=== PATIENT | female | born 2000 | race African-American/Black ===

== ENCOUNTER 2023-09-09 16:46 | Inpatient (IN) | payer MEDICAID, OTHER ==
--- NOTE | 2023-09-09 17:27 | ED ---
General Adult HPI - General Chief complaint: Psychiatric Symptoms Stated complaint: Suicidal Ideations Time Seen by Provider: 09/09/23 16:59 Source: patient, EMS, RN notes reviewed Mode of arrival: EMS Limitations: no limitations - History of Present Illness Initial comments: 23 year old female presents to the emergency department for evaluation of suic idal ideation. Patient states that she has been struggling with her mental health for years but has been worse recently. She denies any situational changes. She denies suicidal intent or plan. Admits to self harm with superficial arm abrasions. Denies hallucinations, delusions. - Related Data Allergies Allergy/AdvReac Type Severity Reaction Status Date / Time ibuprofen Allergy Rash/Hives Verified 09/09/23 16:59 Review of Systems ROS Statement: Those systems with pertinent positive or pertinent negative responses have been documented in the HPI. ROS Other: All systems not noted in ROS Statement are negative. Past Medical History Past Medical History: Asthma Additional Past Medical History / Comment(s): Anemia History of Any Multi-Drug Resistant Organisms: None Reported Past Surgical History: No Surgical Hx Reported Past Psychological History: Anxiety Smoking Status: Vaper Past Alcohol Use History: Occasional Past Drug Use History: Marijuana General Exam Limitations: no limitations General appearance: alert, in no apparent distress Head exam: Present: atraumatic, normocephalic, normal inspection Eye exam: Present: normal appearance, PERRL, EOMI. Absent: scleral icterus, conjunctival injection, periorbital swelling ENT exam: Present: normal exam, mucous membranes moist Respiratory exam: Present: normal lung sounds bilaterally. Absent: respiratory distress, wheezes, rales, rhonchi, stridor Cardiovascular Exam: Present: regular rate, normal rhythm, normal heart sounds. Absent: systolic murmur, diastolic murmur, rubs, gallop, clicks Extremities exam: Present: normal inspection, full ROM, normal capillary refill. Absent: tenderness, pedal edema, joint swelling, calf tenderness Neurological exam: Present: alert, oriented X3 Psychiatric exam: Present: depressed, flat affect, suicidal ideation Skin exam: Present: warm, dry, intact, normal color. Absent: rash Course Vital Signs 09/09/23 09/09/23 16:53 19:56 Temperature 98.8 F Pulse Rate 75 Respiratory 17 18 Rate Blood Pressure 138/80 O2 Sat by Pulse 95 Oximetry Medical Decision Making - Medical Decision Making Was pt. sent in by a medical professional or institution ([facility], [facility], urgent care, hospital, or assisted...) When possible be specific @ -[No] Did you speak to anyone other than the patient for history (EMS, parent, family, police, friend...)? What history was obtained from this source @ -[No] Did you review nursing and triage notes (agree or disagree)? Why? @ -[I reviewed and agree with nursing and triage notes] Were old charts reviewed (outside hosp., previous admission, EMS record, old EKG, old radiological studies, urgent care reports/EKG's, assisted records)? Report findings @ -[No old charts were reviewed] Differential Diagnosis (chest pain, altered mental status, abdominal pain women, abdominal pain men, vaginal bleeding, weakness, fever, dyspnea, syncope, head ache, dizziness, GI bleed, back pain, seizure, CVA, palpatations, mental health, musculoskeletal)? @ -[Differential Mental Health Depression, anxiety, bipolar, psychosis, schizophrenia, borderline personality, situational depression, adjustment disorder, behavioral disorder, brain tumor, malingering, substance abuse, encephalopathy, medication reaction, dementia, hypothyroidism, degenerative neurologic disorder, lupus.... This is not meant to be all-inclusive list] EKG interpreted by me (3pts min.). @ -[none] X-rays interpreted by me (1pt min.). @ -[None done] CT interpreted by me (1pt min.). @ -[None done] U/S interpreted by me (1pt. min.). @ -[None done] What testing was considered but not performed or refused? (CT, X-rays, U/S, labs)? Why? @ -[None] What meds were considered but not given or refused? Why? @ -[None] Did you discuss the management of the patient with other professionals (professionals i.e. [facility], [facility], lab, RT, psych nurse, social service assistant, change booth attendant, teacher, supervisory cbp officer, casey saw operator)? Give summary @ -[Management discussed with emergency psychiatric services who recommends inpatient treatment for the patient] Was smoking cessation discussed for >3mins.? @ -[No] Was critical care preformed (if so, how long)? @ -[No] Were there social determinants of health that impacted care today? How? (Homelessness, low income, unemployed, alcoholism, drug addiction, transportation, low edu. Level, literacy, decrease access to med. care, snf, rehab)? @ -[No] Was there de-escalation of care discussed even if they declined (Discuss DNR or withdrawal of care, Hospice)? DNR status @ -[No] What co-morbidities impacted this encounter? (DM, HTN, Smoking, COPD, CAD, Cancer, CVA, ARF, Chemo, Hep., AIDS, mental health diagnosis, sleep apnea, morbid obesity)? @ -[None] Was patient admitted / discharged? Hospital course, mention meds given and route, prescriptions, significant lab abnormalities, going to OR and other pertinent info. @ -[Discharged. Patient presented to the emergency department for several ideation without attempt or plan. Patient does admit to self-harm. She is not currently taking medications for her mental health. Patient was evaluated by emergency psychiatric services and inpatient treatment was recommended. Patient is resting comfortably in the room. ] Undiagnosed new problem with uncertain prognosis? @ -[No] Drug Therapy requiring intensive monitoring for toxicity (Heparin, Nitro, Insulin, Cardizem)? @ -[No] Were any procedures done? @ -[No] Diagnosis/symptom? @ -[suicidal ideation] Acute, or Chronic, or Acute on Chronic? @ -[acute] Uncomplicated (without systemic symptoms) or Complicated (systemic symptoms)? @ -[uncomplicated] Side effects of treatment? @ -[No] Exacerbation, Progression, or Severe Exacerbation? @ -[No] Poses a threat to life or bodily function? How? (Chest pain, USA, NC, pneumonia, PE, COPD, DKA, ARF, appy, cholecystitis, CVA, Diverticulitis, Homicidal, Suicidal, threat to staff... and all critical care pts) @ -[No] - Lab Data Lab Results 09/09/23 09/09/23 09/09/23 Range/Units 17:48 17:48 19:10 Urine Color Yellow Urine Appearance Cloudy H (Clear) Urine pH 6.0 (5.0-8.0) Ur Specific [place] 1.037 H (1.001-1.035) Urine Protein Trace H (Negative) Urine Glucose (UA) Negative (Negative) Urine Ketones Negative (Negative) Urine Blood Negative (Negative) Urine Nitrite Negative (Negative) Urine Bilirubin Negative (Negative) Urine Urobilinogen 2.0 (<2.0) mg/dL Ur Leukocyte Esterase Small H (Negative) Urine RBC <1 (0-5) /hpf Urine WBC 2 (0-5) /hpf Ur Squamous Epith Cells 4 (0-4) /hpf Urine Mucus Many H (None) /hpf Urine HCG, Qual Not Detected (Not Detectd) Urine Opiates Screen Not Detected (NotDetected) Ur Oxycodone Screen Not Detected (NotDetected) Urine Methadone Screen Not Detected (NotDetected) Ur Barbiturates Screen Not Detected (NotDetected) U Tricyclic Antidepress Not Detected (NotDetected) Ur Phencyclidine Scrn Not Detected (NotDetected) Ur Amphetamines Screen Not Detected (NotDetected) U Methamphetamines Scrn Not Detected (NotDetected) U Benzodiazepines Scrn Not Detected (NotDetected) Urine Cocaine Screen Not Detected (NotDetected) U Marijuana (THC) Screen Detected H (NotDetected) SARS-CoV-2 (PCR) Not Detected (Not Detectd) Disposition Clinical Impression: Depression, Suicidal ideation Disposition: TRANSFER TO PSYCH HOSP/UNIT Condition: Stable Is patient prescribed a controlled substance at d/c from ED?: No Referrals: None,Stated [Primary Care Provider] - 1-2 days
[2023-09-09 18:23] LABS: Appearance,Urine Cloudy (Clear); Bilirubin,Urine Negative (Negative); Blood,Urine Negative (Negative); Color,Urine Yellow; Glucose,Urine (UA) Negative (Negative); Ketones,Urine Negative (Negative); Leukocyte Esterase,Urine Small (Negative); Mucus,Urine Many /hpf; Nitrite,Urine Negative (Negative); Protein,Urine Trace (Negative); RBC,Urine <1 /hpf (0-5); Specific Gravity,Urine 1.037 (1.001-1.035); Squamous Epithelial Cell,Urine 4 /hpf (0-4); WBC,Urine 2 /hpf (0-5)
[2023-09-09 18:32] LABS: Amphetamine Screen,Urine Not Detected (NotDetected); Barbiturate Screen,Urine Not Detected (NotDetected); Benzodiazepines Screen,Urine Not Detected (NotDetected); Cocaine Screen,Urine Not Detected (NotDetected); Methadone Screen, Urine Not Detected (NotDetected); Opiate Screen,Urine Not Detected (NotDetected); Oxycodone Screen, Urine Not Detected (NotDetected); Phencyclidine Screen,Urine Not Detected (NotDetected); Tricyclic Antidepressant,Urine Not Detected (NotDetected); Urn Cannabinoid Scrn Detected (NotDetected)
[2023-09-09] MEDS ORDERED: hydrOXYzine HCL 25 MG TAB PO PRN (23:28)
[2023-09-09] MEDS ORDERED: ACETAMINOPHEN TAB 325 MG TAB PO PRN (23:28)
[2023-09-09] MEDS ORDERED: hydrOXYzine HCL 50 MG/ML 1 ML VIAL IM PRN (23:28)
[2023-09-09] MEDS ORDERED: MAGNESIUM HYDROXIDE 2,400 MG/30 ML CUP PO PRN (23:28)
[2023-09-09] MEDS ORDERED: MAG HYDROX/AL HYDROX/SIMETH 30 ML CUP PO PRN (23:28)
[2023-09-09] MEDS ORDERED: MELATONIN 5 MG TABLET PO PRN (23:31)
[2023-09-10] MEDS: NICOTINE 14MG/24HR PATCH TRANSDERM SCH (08:50)
--- NOTE | 2023-09-10 10:54 | P.HP ---
Psychiatric H&P - . H&P Date: 09/10/23 History & Physical: Allergies Allergy/AdvReac Type Severity Reaction Status Date / Time ibuprofen Allergy Rash/Hives Verified 09/09/23 21:40 Vital Signs Temp 98.5 F 09/10/23 00:45 Pulse 82 09/10/23 08:48 Resp 16 09/10/23 08:48 BP 141/85 09/10/23 08:48 Pulse Ox 95 09/09/23 16:53 FiO2 Intake & Output 09/09/23 09/10/23 09/10/23 18:59 06:59 18:59 Weight 145.15 kg 145.15 kg Laboratory Last Values Urine Color Yellow 09/09/23 17:48 Urine Appearance Cloudy (Clear) H 09/09/23 17:48 Urine pH 6.0 (5.0-8.0) 09/09/23 17:48 Ur Specific [place] 1.037 (1.001-1.035) H 09/09/23 17:48 Urine Protein Trace (Negative) H 09/09/23 17:48 Urine Glucose (UA) Negative (Negative) 09/09/23 17:48 Urine Ketones Negative (Negative) 09/09/23 17:48 Urine Blood Negative (Negative) 09/09/23 17:48 Urine Nitrite Negative (Negative) 09/09/23 17:48 Urine Bilirubin Negative (Negative) 09/09/23 17:48 Urine Urobilinogen 2.0 mg/dL (<2.0) 09/09/23 17:48 Ur Leukocyte Esterase Small (Negative) H 09/09/23 17:48 Urine RBC <1 /hpf (0-5) 09/09/23 17:48 Urine WBC 2 /hpf (0-5) 09/09/23 17:48 Ur Squamous Epith Cells 4 /hpf (0-4) 09/09/23 17:48 Urine Mucus Many /hpf (None) H 09/09/23 17:48 Urine HCG, Qual Not Detected (Not Detectd) 09/09/23 17:48 Urine Opiates Screen Not Detected (NotDetected) 09/09/23 17:48 Ur Oxycodone Screen Not Detected (NotDetected) 09/09/23 17:48 Urine Methadone Screen Not Detected (NotDetected) 09/09/23 17:48 Ur Barbiturates Screen Not Detected (NotDetected) 09/09/23 17:48 U Tricyclic Antidepress Not Detected (NotDetected) 09/09/23 17:48 Ur Phencyclidine Scrn Not Detected (NotDetected) 09/09/23 17:48 Ur Amphetamines Screen Not Detected (NotDetected) 09/09/23 17:48 U Methamphetamines Scrn Not Detected (NotDetected) 09/09/23 17:48 U Benzodiazepines Scrn Not Detected (NotDetected) 09/09/23 17:48 Urine Cocaine Screen Not Detected (NotDetected) 09/09/23 17:48 U Marijuana (THC) Screen Detected (NotDetected) H 09/09/23 17:48 SARS-CoV-2 (PCR) Not Detected (Not Detectd) 09/09/23 19:10 09/10/23 09:17 IDENTIFYING DATA: Patient is a student, 23-year-old AA female who is presenting with suicidal ideation HPI: Patient was brought in by EMS due to suicidal ideation and superficial cutting for self-harm. Patient reports down and "frustrated" for the past 1 week. Stressors include sense of abandonment from family, recent argument with boyfriend, lack of finances for food, clothing, and housing. 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 However, she says that she had a "breakdown" where she cut herself with a tool from her baking kit on the L forearm and cut her hair with a knife to relieve frustration. She felt she would attempt suicide and therefore called EMS. She cannot recall having thought of a specific plan but was feeling unsafe to be left by herself. She endorses recurrent bouts of depression, with the longest duration being 1 week, and largely due to loneliness. She reports having felt depressed for a few months when her grandmother (primary caregiver) in 2019. She recently reports having trouble sleeping for 3 days (trouble falling asleep), fair energy, fair appetite, thoughts of worthlessness, fluctuating concentration, and psychomotor retardation. Although patient denies symptoms consistent with hypomania or wilson, she admits to having 2-3 days of low to poor sleep with preserved energy. She denies other potential concurrent symptoms including increased goal-directed activity, flight of ideas, increased talkativeness, distractibility, increased indiscretion, grandiosity, and impulsivity. Patient currently denies suicidal ideation and homicidal ideation. She denies auditory and visual hallucinations, as asked and assessed. She denies access to firearms. PSYCH HX: Previous psychiatrist: Denies Therapist: Denies Past tx: Effexor - "made me more depressed" through PCP. Zoloft - took it once and felt it was helpful Hospitalizations: Denies NSSI: One other time cutting her forearm SA: OD Naproxen 2 years ago PMH: Anemia (on ferrous sulfate), irregular menses (but now on OCP and therefore consistent) ALLERGIES: Ibuprofen PCP: Denies currently but has transformation consultant Head injuries: Denies Seizures: Denies SUBSTANCE HX: Alcohol: Occasional, social Tobacco: Vape nicotine Cannabis: Every other weekend- vapes Denies using other substances SOCIAL/LEGAL HX: She was raised by her grandmother who in 2019. Mother used to visit occasionally. Never met biological father. Patient felt mother valued men over her and her sister. Mother kicked her out of grandmother's home and she was staying with her friends prior to enrolling in [employer]. Sister is in [place]. She has one older brother who works for [employer]. She has been staying in the dorms. She has been dating her boyfriend for 3 years. Highest level of education: [employer] - would like become a cloth shearer. Is a 2 year school and she will be graduating this year. Vocation: Worked at [email or web address] in the past and sold desserts in the past Legal problems: Denies FAM PSYCH HX: Mother: unknown but potentially bipolar Sister & brother: depression Suicide attempts: Maternal cousin MENTAL STATUS EXAM: General Appearance: Patient appears to be stated age is alert, directable, and attempts to cooperate. Patient appears to have poor hygiene and grooming. Behavior: Patient is seated without any agitated behavior. Speech: Patient's speech is fluent and nonpressured. Soft spoken Mood/Affect: Patient reports their mood is depressed, affect is incongruent and blunted Suicidality/Homicidality: Patient denies having any homicidal ideation intent or plan. Denies any suicidal ideations intent or plan Perceptions: Patient denies any visual hallucinations and denies any auditory hallucinations Though content/process: There is no evidence of any delusional thought content and thought process is linear and goal-directed. Memory and concentration: AOX3, grossly intact for the purposes of this session. Can spell "WORLD" backwards Judgment and insight: Fair STRENGTHS/WEAKNESSES: Strength is insight into seeking treatment. Weakness is lack of social support. INTELLECT: average IMPRESSIONS: Depressive disorder unspecified Nicotine dependence Cannabis use disorder, mild PLAN: -Patient is admitted under voluntary status to MHU for stabilization of psychiatric symptoms and safety. Patient signed adult voluntary form and medication consent and is placed in patient's chart. -Medications: Start Zoloft 25 mg daily for low mood Start melatonin 5 mg at bedtime for sleep -NRT- patch -Vistaril PRN for anxiety -Monitor for signs and symptoms of wilson -Patient was counselled on substance abuse and desired to cut back on use. Motivational interviewing. -Patient was informed of the risks, benefits and side effects of the medication and patient verbally consented to taking the medications. Patient signed med consent form and was placed in chart. -Internal Medicine consult to perform medical evaluation and physical. -SW on board for discharge planning. Encourage patient to participate in groups to work on coping skills. 09/10/23 09:29 09/10/23 10:45
[2023-09-10] MEDS: SERTRALINE 25 MG TAB PO SCH (11:50)
[2023-09-10 13:42] LABS: Anisocytosis Slight; Basophils % (A) 1 %; Eosinophils % (A) 0 %; HCT 37.6 % (34.0-46.0); HGB 11.1 gm/dL (11.4-16.0); Hypochromasia Marked; Lymphocytes # (A) 2.2 k/uL (1.0-4.8); Lymphocytes % (A) 38 %; MCH 22.9 pg (25.0-35.0); MCHC 29.5 g/dL (31.0-37.0); MCV 77.7 fL (80.0-100.0); Mean Platelet Volume 9.1; Microcytosis Slight; Monocytes # (A) 0.4 k/uL (0-1.0); Monocytes % (A) 7 %; Neutrophils % (A) 52 %; Platelet Count 350 k/uL (150-450); RBC 4.84 m/uL (3.80-5.40); RDW 16.1 % (11.5-15.5); WBC 5.7 k/uL (3.8-10.6)
[2023-09-10 14:03] LABS: ALT 23 U/L (4-34); AST 30 U/L (14-36); African American GFR (CKD) >90 (>60 ml/min/1.73 sqM); Albumin 4.4 g/dL (3.5-5.0); Alkaline Phosphatase 67 U/L (38-126); Anion Gap 15 mmol/L; Bilirubin, Delta 0.2 mg/dL (0.0-0.2); Bilirubin,Unconjugated 0.2 mg/dL (0.0-1.1); Blood Urea Nitrogen 13 mg/dL (7-17); Calcium 9.5 mg/dL (8.4-10.2); Carbon Dioxide 22 mmol/L (22-30); Chloride 104 mmol/L (98-107); Glucose 89 mg/dL (74-99); Non-African American GFR(CKD) >90 (>60 ml/min/1.73 sqM); Potassium 4.5 mmol/L (3.5-5.1); Sodium 141 mmol/L (137-145); Total Bilirubin 0.4 mg/dL (0.2-1.3); Total Protein 8.1 g/dL (6.3-8.2)
[2023-09-10] MEDS: MELATONIN 5 MG TABLET PO SCH (21:47)
[2023-09-10 23:08] LABS: LDL Cholesterol,Calculated 107.9 mg/dL (0.0-131.0)
--- NOTE | 2023-09-11 04:25 | P.CONS ---
History of Present Illness - Reason for Consult Consult date: 09/11/23 Past Medical History Past Medical History: Asthma Additional Past Medical History / Comment(s): Anemia History of Any Multi-Drug Resistant Organisms: None Reported Past Surgical History: No Surgical Hx Reported Past Anesthesia/Blood Transfusion Reactions: No Reported Reaction Past Psychological History: Anxiety, Depression Smoking Status: Vaper Past Alcohol Use History: Occasional Past Drug Use History: Marijuana - Past Family History Father Family Medical History: Unable to Obtain Mother Family Medical History: Unable to Obtain Medications and Allergies Home Medications Medication Instructions Recorded Confirmed Type No Known Home Medications 09/09/23 09/09/23 History Allergies Allergy/AdvReac Type Severity Reaction Status Date / Time ibuprofen Allergy Rash/Hives Verified 09/09/23 21:40 Physical Exam Vitals: Vital Signs Pulse Resp BP 09/10/23 08:48 82 16 141/85 Intake and Output 09/10/23 09/10/23 09/11/23 14:59 22:59 06:59 Other: Weight 155.7 kg Results CBC & Chem 7: 09/10/23 12:19 09/10/23 12:19 Labs: Abnormal Lab Results - Last 24 Hours (Table) 09/10/23 09/10/23 Range/Units 12:19 12:19 Hgb 11.1 L (11.4-16.0) gm/dL MCV 77.7 L (80.0-100.0) fL MCH 22.9 L (25.0-35.0) pg MCHC 29.5 L (31.0-37.0) g/dL RDW 16.1 H (11.5-15.5) % HDL Cholesterol 34.90 L (40.00-60.00) mg/dL
[2023-09-11] MEDS: NICOTINE 14MG/24HR PATCH TRANSDERM SCH (08:23)
[2023-09-11] MEDS: SERTRALINE 25 MG TAB PO SCH (08:24)
--- NOTE | 2023-09-11 17:08 | P.PN ---
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 she said that she has a sister who supportive but that she does not want to bother her since she has too much on her shoulders she currently denies that she has any suicidal thoughts or plans and feels that she has made adequate progress she reports that she was prescribed effects or for anxiety by our PCP about two years ago but she only took for couple of weeks she also states that her current medications are agreeing well but that she had to start taking them SUBSTANCE HX: Alcohol: Occasional, social Tobacco: Vape nicotine Cannabis: Every other weekend- vapes Denies using other substances MENTAL STATUS EXAM: General Appearance: Patient appears to be stated age is alert, directable, and attempts to cooperate. Patient appears to have poor hygiene and grooming. Behavior: Patient is seated without any agitated behavior. Speech: Patient's speech is fluent and nonpressured. Soft spoken Mood/Affect: Patient reports their mood has improved she said that she start to feel more positive Suicidality/Homicidality: Patient denies having any homicidal ideation intent or plan. Denies any suicidal ideations intent or plan Perceptions: Patient denies any visual hallucinations and denies any auditory hallucinations Though content/process: There is no evidence of any delusional thought content and thought process is linear and goal-directed. Memory and concentration: AOX3, grossly intact for the purposes of this session. Judgment and insight: Fair iMPRESSIONS: adjustment disorder with mixed emotional features Depressive disorder unspecified Nicotine dependence Cannabis use disorder, mild rule out personality disorder with borderline traits PLAN: -Patient is admitted under voluntary status to MHU for stabilization of psychiatric symptoms and safety. Patient signed adult voluntary form and medication consent and is placed in patient's chart. -Medications: continue Zoloft 25 mg daily for low mood discussed realistic expectations on the medications continue melatonin 5 mg at bedtime for sleep -NRT- patch -Vistaril PRN for anxiety -Monitor for signs and symptoms of wilson -Patient was counselled on substance abuse and desired to cut back on use. Motivational interviewing. -Patient was informed of the risks, benefits and side effects of the medication and patient verbally consented to taking the medications. Patient signed med consent form and was placed in chart. -Internal Medicine consult to perform medical evaluation and physical. -SW on board for discharge planning. Encourage patient to participate in groups to work on coping skills. Williams Ngo MD 09/11/2023 Objective - Vital Signs Vital signs: Vital Signs Temp 97.7 F 09/11/23 06:41 Pulse 65 09/11/23 06:41 Resp 16 09/11/23 06:41 BP 153/79 09/11/23 06:41 Pulse Ox 97 09/11/23 06:41 FiO2 Intake & Output 09/10/23 09/11/23 09/11/23 18:59 06:59 18:59 Weight 155.7 kg - Labs CBC & Chem 7: 09/10/23 12:19 09/10/23 12:19 Labs: Abnormal Lab Results - Last 24 Hours (Table) 09/10/23 Range/Units 12:19 HDL Cholesterol 34.90 L (40.00-60.00) mg/dL
[2023-09-11] MEDS: MELATONIN 5 MG TABLET PO SCH (20:56)
[2023-09-12] MEDS: NICOTINE 14MG/24HR PATCH TRANSDERM SCH (09:15)
[2023-09-12] MEDS: SERTRALINE 25 MG TAB PO SCH (09:15)
--- NOTE | 2023-09-12 13:35 | P.PN ---
Subjective Progress Note Date: 09/12/23 DAVIDE MADRIGAL The trail was similar to the previous day patient says that she is starting to feel better and that her anxiety and depression have decreased she said that she started to feel much more positive and is looking forward to going home The patient was seen chart was reviewed in case discussed the nursing staff patient reports that she has started to feel better She reports that she slept very well she states that her anxiety is also decreased significantly MENTAL STATUS EXAM: General Appearance: Patient appears to be stated age is alert, directable, and attempts to cooperate. Patient appears to have poor hygiene and grooming. Behavior: Patient is seated without any agitated behavior. Speech: Patient's speech is fluent and nonpressured. Soft spoken Mood/Affect: Patient reports their mood has improved she said that she start to feel more positive Suicidality/Homicidality: Patient denies having any homicidal ideation intent or plan. Denies any suicidal ideations intent or plan Perceptions: Patient denies any visual hallucinations and denies any auditory hallucinations Though content/process: There is no evidence of any delusional thought content and thought process is linear and goal-directed. Memory and concentration: AOX3, grossly intact for the purposes of this session. Judgment and insight: Fair iMPRESSIONS: adjustment disorder with mixed emotional features Depressive disorder unspecified Nicotine dependence Cannabis use disorder, mild rule out personality disorder with borderline traits PLAN: -Patient is admitted under voluntary status to MHU for stabilization of psychiatric symptoms and safety. Patient signed adult voluntary form and medication consent and is placed in patient's chart. -Medications: continue Zoloft 25 mg daily for low mood discussed realistic expectations on the medications continue melatonin 5 mg at bedtime for sleep -NRT- patch -Vistaril PRN for anxiety -Monitor for signs and symptoms of wilson -Patient was counselled on substance abuse and desired to cut back on use. Motivational interviewing. -Patient was informed of the risks, benefits and side effects of the medication and patient verbally consented to taking the medications. Patient signed med consent form and was placed in chart. -Internal Medicine consult to perform medical evaluation and physical. -SW on board for discharge planning. Encourage patient to participate in groups to work on coping skills. Williams Ngo MD 09/12/2023 Objective - Vital Signs Vital signs: Vital Signs Temp 97.4 F L 09/12/23 06:27 Pulse 57 L 09/12/23 06:27 Resp 14 09/12/23 06:27 BP 125/59 09/12/23 06:27 Pulse Ox 97 09/11/23 06:41 FiO2 - Labs CBC & Chem 7: 09/10/23 12:19 09/10/23 12:19
[2023-09-12] MEDS: MELATONIN 5 MG TABLET PO SCH (21:39)
[2023-09-13 07:34] VITALS: BP 123/85; PULSE 66; RESP 16; TEMP 97.8
[2023-09-13] MEDS: NICOTINE 14MG/24HR PATCH TRANSDERM SCH (08:55)
[2023-09-13] MEDS: SERTRALINE 25 MG TAB PO SCH (08:56)
--- NOTE | 2023-09-13 13:12 | P.DS ---
Providers Date of admission: 09/09/23 23:19 Attending physician: Frank Michael MD Consults: 09/09/23 23:28 Consult Physician Routine Consulting Provider: [facility] Consult Reason/Comments: medical H&P Do you want consulting provider notified?: Yes Primary care physician: Stated None - Discharge Diagnosis(es) (1) Major depressive disorder Current Visit: Yes Status: Resolved Priority: Low Hospital Course: after hospitalization patient received a routine physical examination visible to the admission of further details psychiaInclude-esteem and confidence interpersonal family issues and conflicts andcoping skills issues therapy was focused on providing supporand improving her coping abilthrough thethe multimodel treatment patient responded favorably where at the time of discharge patient was not suicidal or homicidal formal and operational judgment and insight is improved patient at this timestable for furthertreatment as outpatient and was discharged in stable condition with recommendations to follow up as directed Patient Condition at Discharge: Good Plan - Discharge Summary Discharge Rx Participant: Yes New Discharge Prescriptions: No Action No Known Home Medications Discharge Medication List No Known Home Medications 09/09/23 [History] Follow up Appointment(s)/Referral(s): [facility] [employer] [Outside] - 09/21/23 2:00 pm (Makenzie Santana) [facility] Patient Instructions/Handouts: How to Stop Smoking (GEN), Depression (DC), Cannabis Abuse (DC) Activity/Diet/Wound Care/Special Instructions: Avoid the use of street drugs and alcohol. Take all medications as prescribed. When you are in need of refills on your medications, please contact your medical provider and/or outpatient psychiatrist/provider to have this done. Please go to your scheduled outpatient appointment for aftercare treatment. If symptoms return or become worse, call the crisis line at and/or go to the nearest emergency room for evaluation. National Suicide Hotline 497.
== END 2023-09-13 14:57 | disposition home or self-care (01) | DRG 754 ==
LOC: EC 16:46 → 3MHU 23:19
PROVIDERS: ADMIT Psychiatry & Neurology Psychiatry; ATTEND Psychiatry & Neurology Psychiatry
DX: F32.9 Major depressive disorder, single episode, unspecified (principal); D64.9 Anemia, unspecified; F12.90 Cannabis use, unspecified, uncomplicated; F17.200 Nicotine dependence, unspecified, uncomplicated; F43.23 Adjustment disorder with mixed anxiety and depressed mood; N92.6 Irregular menstruation, unspecified; S40.819A Abrasion of unspecified upper arm, initial encounter; X78.1XXA Intentional self-harm by knife, initial encounter
CPT/HCPCS: 80053; 80061; 80306; 81001; 81025; 82075; 82248; 83036; 84443; 85025; 87635; 99285